=== PATIENT | female | born 2000 | race Caucasian/White ===

== ENCOUNTER 2020-12-14 05:38 | Emergency (ER) | payer OTHER ==
[~2020-12-14] VITALS: Ht 162.6 cm; Wt 109.3 kg
[2020-12-14 05:42] VITALS: BP 141/90
--- NOTE | 2020-12-14 05:58 | NUR ---
20 Y/O FEMALE CAME TO THE ED FOR HEADACHE OF 04/18 THAT RADIATES TO TEMPORAL AREA AND BACK OF EYES X1 WEEK. PT STATES THAT SHE HAS BEEN FEELING DIZZY AND NAUSEAOUS BUT DENIES VOMITTING. PT ALSO STATES THAT LEFT SIDE OF NECK FEELS "SWOLLEN". A&OX4. GCS15. PT IS AMBULATORY WITH STEADY GAIT. PMH: DENIES NKA LMP: 11/26/20
[2020-12-14] MEDS ORDERED: PROCHLORPERAZINE 10 MG/2 ML VIAL IM ONE (06:55)
[2020-12-14] MEDS ORDERED: diphenhydrAMINE 50 MG/ML VIAL IM ONE (06:55)
[2020-12-14] MEDS ORDERED: KETOROLAC 30 MG/ML VIAL IM ONE (06:55)
[2020-12-14 07:14] VITALS: BP 141/90
--- NOTE | 2020-12-14 07:15 | NUR ---
Patient discharged with v/s stable. Written and verbal after care instructions given and explained. Patient verbalized understanding. Ambulatory with steady gait. All questions addressed prior to discharge. Advised to follow up with PMD.
== END 2020-12-14 07:15 | disposition home or self-care (01) ==
LOC: MED 05:38
DX: R51.9 Headache, unspecified (principal); G89.29 Other chronic pain
CPT/HCPCS: 81025; 96372; 99284; J0780; J1200; J1885